=== PATIENT | female | born 1995 | race Caucasian/White ===

== ENCOUNTER 2017-12-06 12:45 | Emergency (ER) | payer OTHER ==
[2017-12-06 12:51] VITALS: BP 142/92
[2017-12-06] MEDS ORDERED: KETOROLAC TROMETHAMINE 60 MG/2 ML SDV IM ONE (13:06)
[2017-12-06] MEDS ORDERED: DEXAMETHASONE SOD PHOS INJ 10 MG/1 ML VIAL IM ONE (13:06)
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
== END 2017-12-06 13:27 | disposition home or self-care (01) ==
LOC: ER 12:45
DX: S29.012A Strain of muscle and tendon of back wall of thorax, initial encounter (principal); V49.40XA Driver injured in collision with unspecified motor vehicles in traffic accident, initial encounter; Z87.891 Personal history of nicotine dependence
CPT/HCPCS: 99283; 96372; J1885; J1100